=== PATIENT | female | born 1980 | race African-American/Black ===

== ENCOUNTER 2017-05-17 15:22 | Emergency (ER) | payer OTHER ==
[~2017-05-17] VITALS: Ht 160 cm; Wt 84.4 kg
[~2017-05-17 15:22] MED LIST: IBUPROFEN800 MG PO; PRENATAL1 TA2 PO
[2017-05-17 16:29] LABS: ABSOLUTE BASOPHIL COUNT 0 /CUMM (0.0-0.2); ABSOLUTE EOSINOPHIL COUNT 0.2 /CUMM (0.0-0.7); ABSOLUTE LYMPH COUNT 2.2 /CUMM (1.2-3.4); ABSOLUTE MONOCYTE COUNT 0.8 /CUMM (0.10-0.60); BASOPHIL % 0.3 % (0.0-2.0); EOSINOPHIL % 1.4 % (0-5); GRANULOCYTE % 77.4 % (42.2-75.2); MEAN CORPUSCULAR HGB 30.5 PG (27.0-31.0); MEAN CORPUSCULAR HGB CONC 33.8 G/DL (33.0-37.0); MEAN CORPUSCULAR VOLUME 90.2 FL (81.0-99.0); MEAN PLATELET VOLUME 7.7 FL (7.4-10.4); PLATELET COUNT 303 /CUMM (130-400); RBC DISTRIBUTION WIDTH 13.6 % (11.5-14.5); RED BLOOD CELL CT 3.55 /CUMM (4.20-5.40); WHITE BLOOD CELL COUNT 14.2 /CUMM (4.8-10.8)
--- NOTE | 2017-05-17 19:14 | ULTRASOUND REPORT ---
EXAMINATION: US , VIABILITY CLINICAL INFORMATION: 15 weeks . Abdominal pain. Bleeding. Rule out THR COMPARISON: None LMP: 01/30/2017. Gestational age by maternal dates is 15 weeks 2 days. Estimated date of delivery by maternal dates is 11/06/2017. TECHNIQUE: Real time transabdominal imaging with color and M-mode Doppler. POSITION: Transverse PLACENTA: Posterior MEASUREMENTS: biometric measurements are as follows: Biparietal Diameter: 2.8 cm (15 weeks 1 day) Occipital Frontal Diameter: 3.8 cm (15 weeks 0 days) Head Circumference: 10.82 cm (15 week 2 days) Abdominal Circumference: 9.6 cm (15 weeks 6 days) Femur Length: 1.49 cm (14 weeks 3 days) The standard deviation for the above measurements is +/- 9 - 12 days. ESTIMATED WEIGHT: The EFW is 115 grams +/- 17 grams (0 lbs 4 oz +/- 1 oz). This is at the 26 percentile for a gestation of 15 weeks 2 days by last menstrual period ANATOMY: Grossly unremarkable. cardiac activity is 147 beats per minute. movements are seen. IMPRESSION: 1. Single intrauterine gestation in transverse position with posterior placenta. No acute findings. 2. size is appropriate when compared to dating by the last menstrual period.
--- NOTE | 2017-05-17 19:44 | ED GI/GU/ABDOMINAL COMPLAINT ---
History of Present Illness General Chief Complaint: General Adult Stated Complaint: 15 WEEKS SPOTTING Source: patient Exam Limitations: no limitations Vital Signs & Intake/Output Vital Signs & Intake/Output Vital Signs Date Time Temp Pulse Resp B/P B/P Pulse O2 O2 Flow FiO2 Mean Ox Delivery Rate 05/17 1956 98.1 88 16 108/72 99 Room Air 05/17 1603 99.0 94 16 123/73 99 Room Air Allergies Coded Allergies: MDX - Azithromycin (AZITHROMYCIN) (Intermediate, lip swelling 12/15/14) MDX - Dextromethorphan (From MUCINEX DM) (Intermediate, lip swelling 12/15/14) MDX - Guaifenesin (From MUCINEX DM) (Intermediate, lip swelling 12/15/14) Reconcile Medications No Known Home Medications Triage Note: 36F 15 WEEKS GESTATION, FOLLOWED BY JAMMIE RUBIN NOTICED BRIGHT RED SPOTTING STARTING YESTERDAY AT 1PM. +CRAMPING TO LOWER ABDOMEN INTERMITTENT WHICH STARTED AFTER THE SPOTTING. DENIES SYMPTOMS. PT STATES SHE IS A HIGH RISK DUE TO PREVIOUS COMPLICATIONS. Triage Nurses Notes Reviewed? yes ? Y Is pt currently ? No Onset: Abrupt Duration: day(s): (1.5) Timing: multiple episodes today Quality/Severity: cramping Severity Numbers: 4 Location: periumbilical, suprapubic Radiation: flank Activities at Onset: none Sexually Active: Yes Sexual Orientation: Heterosexual Associated Symptoms: abdominal pain HPI: 36YO female 15 weeks presents to ED complaining of vaginal spotting and mild cramping. Yesterday around 1:30PM patient noticed spotting on underware/pad, not soaking through. Around 2PM patient felt intermittent mild cramping in suprapubic area. Last saw Dr. Christian AGUDELO, on 05/11/17 which was WNL. All 6 prior deliveries were , patient is considered high risk . Patient reports one episode of vaginal bleeding during prior . She reports a history of cervical dilation which was treated with bed rest. Patient denies dysuria, hematuria, fevers, chills, nausea, vomiting, diarrhea. (Oksana RILEY,Lacy Krause) Past History Travel History Traveled to [place] past 21 day No Medical History Any Pertinent Medical History? 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 03/2005 urethral dilation 02/2009 at repair of Achilles tendon 08/2011 TOP Psychosocial History What is your primary language Czech Tobacco Use: Never used ETOH Use: denies use Illicit Drug Use: denies illicit drug use Family History Family History, If Any: Relation not specified for: *No pertinent family history Hx Contributory? No (Lacy Fabian) Review of Systems Review of Systems Constitutional: Reports: no symptoms. EENTM: Reports: no symptoms. Respiratory: Reports: no symptoms. Cardiovascular: Reports: no symptoms. GI: Reports: see HPI. Genitourinary: Reports: see HPI. Musculoskeletal: Reports: no symptoms. Skin: Reports: no symptoms. Neurological/Psychological: Reports: no symptoms. Hematologic/Endocrine: Reports: no symptoms. Immunologic/Allergic: Reports: no symptoms. All Other Systems: Reviewed and Negative (Lacy Fabian) Physical Exam Physical Exam General Appearance: well developed/nourished, no apparent distress, alert, awake Head: atraumatic, normal appearance Eyes: Bilateral: normal appearance. Ears, Nose, Throat, Mouth: hearing grossly normal Neck: normal inspection, supple, full range of motion Respiratory: normal breath sounds, no respiratory distress, lungs clear Cardiovascular: regular rate/rhythm Gastrointestinal: normal bowel sounds, soft, non-tender Pelvic: normal external exam, normal bimanual exam, no cerv. motion tender, blood (mild), cervical os closed on bimanual exam Back: normal inspection, normal range of motion Extremities: normal range of motion Neurologic/Psych: awake, alert, oriented x 3 Skin: intact, normal color, warm/dry Core Measures ACS in differential dx? No Sepsis Present: No Sepsis Focused Exam Completed? No (Lacy Fabian) Progress Differential Diagnosis: appendicitis, bowel obstruction, intrauterine , kidney stone, ovarian cyst, ovarian torsion, PID/cervicitis, threatened AB, UTI/ pyelo Plan of Care: Orders Procedure Date/time Status URINALYSIS 05/17 1539 Complete HUMAN BETA HCG TITRE 05/17 1539 Complete COMPREHENSIVE METABOLIC PANEL 05/17 1539 Complete CBC WITHOUT DIFFERENTIAL 05/17 1539 Complete TYPE & SCREEN (NOT X-MATCH) 05/17 1539 Complete Laboratory Tests 05/17/17 1840: Urine Color YEL, Urine Clarity HAZY H, Urine pH 6.0, Ur Specific [place] >= 1.030, Urine Protein NEG, Urine Ketones TRACE H, Urine Nitrite NEG, Urine Bilirubin NEG, Urine Urobilinogen 0.2, Ur Leukocyte Esterase NEG, Ur Microscopic SEDIMENT EXAMINED, Urine RBC 5-10 H, Urine WBC RARE, Ur Epithelial Cells MANY H, Urine Bacteria FEW H, Urine Mucus MOD H, Urine Hemoglobin TRACE-INTACT, Urine Glucose NEG 05/17/17 1617: Anion Gap 9, Estimated GFR > 60, BUN/Creatinine Ratio 18.3, Glucose 91, Calcium 9.4, Total Bilirubin 0.2, AST 18, ALT 25, Alkaline Phosphatase 50, Total Protein 7.1, Albumin 3.5, Globulin 3.6, Albumin/Globulin Ratio 1.0 L, Beta HCG, Quant 09503.0, CBC w Diff NO MAN DIFF REQ, RBC 3.55 L, MCV 90.2, MCH 30.5, RDW 13.6, MPV 7.7, Gran % 77.4 H, Lymphocytes % 15.6 L, Monocytes % 5.3, Eosinophils % 1.4, Basophils % 0.3, Absolute Granulocytes 11.0 H, Absolute Lymphocytes 2.2, Absolute Monocytes 0.8 H, Absolute Eosinophils 0.2, Absolute Basophils 0, PUBS MCHC 33.8 Ultrasound shows intrauterine , size in accordance with current dates, no acute abnormality. Patient's blood work is within normal limits. Patient is sitting comfortably, no acute pain or distress. Cervical office is closed with mild amount of blood present. Patient informed of all results, she reports a history of mild anemia. Spoke with DR. Alejandre, ELECTRONICS PARTS SALES REPRESENTATIVE pensionholder information clerk, regarding this patient who agrees with the plan for follow-up with OB in the office in one to 2 days. Patient feels ready to go home at this time. She will return to emergency department if she has worsening symptoms or other concerns, otherwise she'll follow-up with ELECTRONICS PARTS SALES REPRESENTATIVE as discussed. Vital signs are stable, she is nontoxic appearing. The patient agrees with the plan of care. Patient was discussed with Dr. Eastman who agrees with the plan of care. Diagnostic Imaging: Viewed by Me: Ultrasound. Discussed w/RAD: Ultrasound. Radiology Impression: PATIENT: ELOY PONCE PRESENT AGE: 36 PATIENT ACCOUNT NO: [id number] : 79 LOCATION: [facility] ORDERING PHYSICIAN: Lennox RILEY SERVICE DATE: 05/17/17 EXAM TYPE: US - US- VIABILITY EXAMINATION: US , VIABILITY CLINICAL INFORMATION: 15 weeks . Abdominal pain. Bleeding. Rule out THR COMPARISON: None LMP: 01/30/2017. Gestational age by maternal dates is 15 weeks 2 days. Estimated date of delivery by maternal dates is 11/06/2017. TECHNIQUE: Real time transabdominal imaging with color and M-mode Doppler. POSITION: Transverse PLACENTA: Posterior MEASUREMENTS: biometric measurements are as follows: Biparietal Diameter: 2.8 cm (15 weeks 1 day) Occipital Frontal Diameter: 3.8 cm (15 weeks 0 days) Head Circumference: 10.82 cm (15 week 2 days) Abdominal Circumference: 9.6 cm (15 weeks 6 days) Femur Length: 1.49 cm (14 weeks 3 days) The standard deviation for the above measurements is +/- 9 - 12 days. ESTIMATED WEIGHT: The EFW is 115 grams +/- 17 grams (0 lbs 4 oz +/- 1 oz). This is at the 26 percentile for a gestation of 15 weeks 2 days by last menstrual period ANATOMY: Grossly unremarkable. cardiac activity is 147 beats per minute. movements are seen. IMPRESSION: 1. Single intrauterine gestation in transverse position with posterior placenta. No acute findings. 2. size is appropriate when compared to dating by the last menstrual period. DICTATED BY: Bao Dejesus MD DATE/TIME DICTATED:05/17/171899 ACCOUNTS RECEIVABLE COORDINATOR:ZIGGY DATE/TIME TRANSCRIBED:05/17/171899 CONFIDENTIAL, DO NOT COPY WITHOUT APPROPRIATE AUTHORIZATION. <Electronically signed in Other Vendor System> SIGNED BY: Bao Dejesus MD 05/17/171913 Initial ED EKG: none (Oksana RILEY,Lacy Krause) Departure Departure Disposition: HOME OR SELF CARE Condition: Stable Clinical Impression Primary Impression: Vaginal bleeding in Secondary Impressions: Abdominal cramping Referrals: Aristeo CARTY,Chele Jauregui (PCP/Family) Additional Instructions: As discussed, follow-up with your ELECTRONICS PARTS SALES REPRESENTATIVE, call the office tomorrow to set up an appointment for this week. If you have any worsening symptoms. Return to the emergency department. Please note that there might be incidental findings in your evaluation that are unrelated to the current emergency department visit. Please notify your primary care doctor about this emergency department visit in order to obtain and review all of the testing performed so that these incidental findings can be monitored as needed. If you had an x-ray performed, please understand that some fractures may not be seen on the initial set of x-rays. If your symptoms persist you might need a repeat set of x-rays to check for such a fracture. If you had a laceration evaluated, please understand that foreign bodies such as glass or wood may not be visible to the naked eye or on plain x-rays. If the wound becomes red, swollen, increasingly more painful or if there is any drainage from the wound, please have it reevaluated by a physician for the possibility of a retained foreign body. If you're unable to follow up as outlined in the discharge instructions please return to the emergency department. Thank you for choosing the [facility] Emergency Department for your care. It was a pleasure to serve you today. Departure Forms: Customer Survey General Discharge Information Prescriptions: Current Visit Scripts No Known Home Medications (Oksana RILEY,Lacy Krause) PA/EARLY CHILDHOOD SERVICES COORDINATOR Co-Sign Statement Statement: ED Attending supervision documentation- [] I saw and evaluated the patient. I have also reviewed all the pertinent lab results and diagnostic results. I agree with the findings and the plan of care as documented in the PA's/EARLY CHILDHOOD SERVICES COORDINATOR's documentation. [X] I have reviewed the ED Record and agree with the PA's/EARLY CHILDHOOD SERVICES COORDINATOR's documentation. [] Additions or exceptions (if any) to the PAs/EARLY CHILDHOOD SERVICES COORDINATOR's note and plan are summarized below: [] (Jaren CARTY,Yfn Ernandez)
[2017-05-17 19:56] VITALS: BP 108/72
== END 2017-05-17 21:14 ==
LOC: ERH 15:22
PROVIDERS: Physician Assistant Medical
DX: O20.9 Hemorrhage in early pregnancy, unspecified (principal); Z3A.15 15 weeks gestation of pregnancy
CPT/HCPCS: 81001

== ENCOUNTER 2017-10-24 08:59 | Inpatient (IN) | payer OTHER ==
[~2017-10-24] VITALS: Ht 162.6 cm; Wt 98.4 kg
[2017-10-24] MEDS ORDERED: PRENATAL MULTI1 EAC2 PO (09:43)
[2017-10-24 10:23] LABS: ABSOLUTE BASOPHIL COUNT 0 /CUMM (0.0-0.2); ABSOLUTE EOSINOPHIL COUNT 0.1 /CUMM (0.0-0.7); ABSOLUTE GRANULOCYTE CT 8.6 /CUMM (1.4-6.5); ABSOLUTE LYMPH COUNT 1.8 /CUMM (1.2-3.4); ABSOLUTE MONOCYTE COUNT 0.8 /CUMM (0.10-0.60); BASOPHIL % 0.4 % (0.0-2.0); EOSINOPHIL % 0.9 % (0-5); GRANULOCYTE % 75.3 % (42.2-75.2); HEMATOCRIT 30.1 % (37-47); MEAN CORPUSCULAR HGB 31.6 PG (27.0-31.0); MEAN CORPUSCULAR HGB CONC 34.5 G/DL (33.0-37.0); MEAN CORPUSCULAR VOLUME 91.7 FL (81.0-99.0); MEAN PLATELET VOLUME 7.8 FL (7.4-10.4); PLATELET COUNT 252 /CUMM (130-400); RBC DISTRIBUTION WIDTH 13.3 % (11.5-14.5); RED BLOOD CELL CT 3.29 /CUMM (4.20-5.40); WHITE BLOOD CELL COUNT 11.4 /CUMM (4.8-10.8)
--- NOTE | 2017-10-24 11:59 | History & Physical ---
General Information and HPI MD Statement: I have seen and personally examined ELOY PONCE and documented this H&P. The patient is a 36 year old female at 38 weeks and 1 days gestation who presented with a chief complaint of abnormal UA dopplers. Source of Information: patient, old records Exam Limitations: no limitations History of Present Illness: pt followed at [facility]U for abnormal UA doppler ranging from 3.7 upper limits of normal to 5.3 since growth was appropriate and testing was normal no intervention was made, however pt is now 38 weeks with an inducable cervix and the plan is for induction. 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 1 oz. Type of Delivery: vaginal Anesthesia: None Place of Delivery: [facility] Past Pregnancies: 2 Date of Delivery: 12/15/2014 Gestational Age: 36 weeks Length of Labor: 3 hrs Weight: 6# 7oz Type of Delivery: vaginal Anesthesia: none Place of Delivery: [place] Complications: none Past Pregnancies: 3 Date of Delivery: 04/14/2008 Gestational Age: 37weeks Length of Labor: 22 hrs Weight: 6#5oz Anesthesia: none Place of Delivery[facility] Complications: none Past Pregnancies: 4 Date of Delivery: 09/20/1998 Gestational Age: 37 Weight: 6#1oz Type of Delivery: vaginal Past Pregnancies: 5 Date of Delivery: 11/05/1996 Gestational Age: 36 Weight: 5# 11oz Type of Delivery: vaginal Past Pregnancies: 6 Date of Delivery: 11/04/2005 Gestational Age: 38weeks Length of Labor: 7h Weight: 6#7oz Type of Delivery: vaginal Anesthesia: none Place of Delivery: [facility] Medical History Neurological: NONE EENT: NONE Cardiovascular: NONE Respiratory: NONE Gastrointestinal: NONE Hepatic: NONE Renal: NONE Musculoskeletal: NONE Psychiatric: NONE Endocrine: NONE Blood Disorders: NONE Cancer(s): NONE 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 03/2005 urethral dilation 02/2009 at repair of Achilles tendon 08/2011 TOP Past Family/Social History Family History Relations & Conditions if any Relation not specified for: *No pertinent family history Psychosocial History Who Do You Live With? spouse, child, self Primary Language: Algerian Smoking Status: Never Smoked Review of Systems Review of Systems Constitutional: Reports: no symptoms. Denies: chills, fever. EENTM: Denies: blurred vision, double vision, visual changes. Cardiovascular: Denies: chest pain, edema. Respiratory: Denies: cough, short of breath. GI: Denies: abdominal pain, diarrhea, nausea, vomiting. Genitourinary: Denies: dysuria. Musculoskeletal: Denies: back pain. Neurological/Psychological: Denies: anxiety, depressed. Exam & Diagnostic Data Last 24 Hrs of Vital Signs/I&O vss Intake & Output 06/04 1600 06/04 0800 06/04 0000 Intake Total Output Total Balance Patient 217 lb Weight Obstetric Exam Wgt Gained During : 56# Pelvimetry: tested to 6# 7oz Dilation (cm): 2 Effacement (%): 50 Station: 0 Membranes: AROM Fluid: clear Fundal Height (cm): 38 Multiple Gestation? No Contractions: rare Infant #1 - FHR Baseline: 140 Category: 1 Estimated Weight: 3400g Presentation: vtx Patient for Induction? Yes Srinivasan Score Srinivasan Score Response Value Cervix Position: mid-position 1 Cervix Consistency: soft 2 Cervix Effacement: 30-50% 1 Cervix Dilation: 1-2 cm 1 Cervix Station: -1 2 Total 7 Physical Exam General Appearance Alert, Oriented X3, Cooperative, No Acute Distress Cardiovascular Regular Rate Lungs Clear to Auscultation Abdomen Soft Extremities No Edema Labs Blood Type & Rh: O Pos Antibody Screen: neg Hct/Hgb & Platelets #1: 37.7/11.2/320 Hct/Hgb & Platelets #2: 33.1/10.4/281 Rubella: imm VDRL #1: nr VDRL #2: nr HbsAg: neg HIV #1: nr HIV #2 nr 1 Hr P Group B Strep: neg Initial Ultrasound: 04/08/17 9w5d Anatomy Ultrasound: normal AT ATU echo normal Ultrasound for EFW: 09/22/17 48%tile Genetic Testing: early NT normal Last 24 Hrs of Labs/[place]: Laboratory Tests 10/24/17 0945: CBC w Diff NO MAN DIFF REQ, RBC 3.29 L, MCV 91.7, MCH 31.6 H, MCHC 34.5, RDW 13.3, MPV 7.8, Gran % 75.3 H, Lymphocytes % 16.1 L, Monocytes % 7.3, Eosinophils % 0.9, Basophils % 0.4, Absolute Granulocytes 8.6 H, Absolute Lymphocytes 1.8, Absolute Monocytes 0.8 H, Absolute Eosinophils 0.1, Absolute Basophils 0 10/24/17 0915: Urine Color YEL, Urine Clarity CLEAR, Urine pH 6.5, Ur Specific [place] 1.015, Urine Protein NEG, Urine Ketones NEG, Urine Nitrite NEG, Urine Bilirubin NEG, Urine Urobilinogen 1.0, Ur Leukocyte Esterase TRACE H, Ur Microscopic SEDIMENT EXAMINED, Urine RBC 1-3, Urine WBC 1-3 H, Ur Epithelial Cells OCCAS, Urine Bacteria FEW H, Urine Hemoglobin NEG, Urine Glucose NEG Assessment/Plan Assessment/Plan: IUP at 38weeks favoriable cervix plan AROM Pitocin induction of labor As Ranked By This Provider Problem List: 1. Grand multipara in labor Core Measures Venous Thromboembolism VTE Risk Factors / No Mechanical VTE Prophylaxis d/t LowRisk-No Interven Req'd No VTE Pharm Prophylaxis d/t LowRisk-No Interven Req'd Attending MD Review Statement Attending Statement Attending MD Statement: examined this patient, discussed with family, discussed w/nursing Attending Assessment/Plan: IUP at 38 weeks AMA Grand multip UA Doppler showing increased placental resistance boderline testing inducable cervix cervical dysplasia
--- NOTE | 2017-10-24 16:02 | Labor & Delivery Summary ---
Delivery Summary Vaginal Delivery: Vaginal: vertex Episiotomy/Lacerations: Episiotomy/Lacerations: none Placenta: Placenta: spontanteous, normal, 3 vessel Anesthesia: none Apgars - 1 Min: 9 Apgars - 5 Min: 9 Additional Comments: good delivery intact perinum placenta intact good hemostasis with iv pitocin baby has Downs syndrome faces.
--- NOTE | 2017-10-25 11:30 | PN- Post Delivery/GYN ---
Subjective Subjective: Feeling well ,no complaints. She tolerated diet, void without difficulties Review of Systems Constitutional: Reports: no symptoms. EENTM: Reports: no symptoms. Cardiovascular: Reports: no symptoms. Respiratory: Reports: no symptoms. Gastrointestinal: Reports: no symptoms. Genitourinary: Reports: see HPI. All Other Systems: Reviewed and Negative Objective Last 24 Hrs of Vital Signs/I&O VSS Physical Exam: General: NAD Abdomen: soft, nontender, uterus firm, fundus below umbilicus. lochia mild Ext: DCT (-) Current Medications: Current Medications Sig/Belle Start time Last Medication Dose Route Stop Time Status Admin Acetaminophen 650 MG Q4P PRN 10/24 1615 AC PO Chloroprocaine HCl 30 ML .STK-MED ONE 10/24 1437 DC IV 10/24 1438 Hydroxyzine HCl 50 MG AT BEDTIME NEED.. 10/24 1615 AC PO Ibuprofen 800 MG Q6P PRN 10/24 1615 AC 06/05 PO 0740 Lactated Ringer's 1,000 ML Q8H 10/24 0945 DC 10/24 IV 1047 Magnesium Hydroxide 30 ML DAILY PRN 10/24 1615 AC PO Oxytocin 20 UNITS Q5H 10/24 1615 DC / Lactated Ringer's 1,000 ML IV 10/24 2114 1453 Oxytocin 30 UNITS PER PROTOCL 10/24 1030 DC / Lactated Ringer's 500 ML IV 1035 Assessment/Plan Assessment/Plan 36yo, s/p , PPD#1 1. encourage ambulation 2. RT PP care 3. likely has Down syndrom, pt is unsure for circumcision, will discuss with FOB
[2017-10-25 11:55] LABS: ABSOLUTE BASOPHIL COUNT 0 /CUMM (0.0-0.2); ABSOLUTE EOSINOPHIL COUNT 0.1 /CUMM (0.0-0.7); ABSOLUTE GRANULOCYTE CT 12.8 /CUMM (1.4-6.5); ABSOLUTE LYMPH COUNT 2.2 /CUMM (1.2-3.4); ABSOLUTE MONOCYTE COUNT 0.9 /CUMM (0.10-0.60); BASOPHIL % 0.3 % (0.0-2.0); EOSINOPHIL % 0.4 % (0-5); GRANULOCYTE % 79.8 % (42.2-75.2); MEAN CORPUSCULAR HGB 31.3 PG (27.0-31.0); MEAN CORPUSCULAR HGB CONC 33.9 G/DL (33.0-37.0); MEAN CORPUSCULAR VOLUME 92.2 FL (81.0-99.0); MEAN PLATELET VOLUME 8.3 FL (7.4-10.4); PLATELET COUNT 294 /CUMM (130-400); RBC DISTRIBUTION WIDTH 13.2 % (11.5-14.5); RED BLOOD CELL CT 3.69 /CUMM (4.20-5.40)
--- NOTE | 2017-10-26 11:49 | PN- OBGYN ---
Surgical Brief Attending Note Brief Attending Note: pt feeling well. amb / void / renee po. +bf. pain well controlled w/ motrin. afeb, v/ss nad abd soft nt ff tena min lochia ext nt tr b/l le ed a/p ppd 2 s/p , doing well baby boy w/ possible Suleman 21 extensive d/w pt re: risks / benefits of circumcision - pt still unsure, defers today - if reconsiders will have performed as outpt -d/c home w/ f/u in 2 wks and 6 wks -d/c instructions reviewed -routine pp care
[2017-10-26] MEDS ORDERED: IBUPROFEN800 M1 PO (11:50)
== END 2017-10-26 13:36 | DRG 560 ==
LOC: GNO 08:59
PROVIDERS: Obstetrics & Gynecology
PROC: 10E0XZZ Delivery of Products of Conception, External Approach (ICD-10-PCS; principal; 2017-10-24)
DX: O35.1XX0 Maternal care for (suspected) chromosomal abnormality in fetus, not applicable or unspecified (principal); Z3A.38 38 weeks gestation of pregnancy; Z37.0 Single live birth; Z67.90 Unspecified blood type, Rh positive
CPT/HCPCS: GNOS; 36415; 81001; J7120